=== PATIENT | female | born 1990 | race Caucasian/White ===

== ENCOUNTER 2021-10-19 01:28 | Emergency (ER) | payer BC ==
[~2021-10-19] VITALS: Ht 162.6 cm; Wt 49.0 kg
[2021-10-19 01:44] VITALS: BP 112/78
[2021-10-19] MEDS ORDERED: diphenhydrAMINE 50 MG/ML VIAL IVP ONE (01:50)
[2021-10-19] MEDS ORDERED: NACL 0.9% 1,000 ML IV ONE (01:50)
[2021-10-19] MEDS ORDERED: LORazepam 2 MG/ML VIAL IVP ONE ×2 (01:50→03:15)
[2021-10-19] MEDS ORDERED: ONDANSETRON 4 MG/2 ML VIAL IVP ONE (01:50)
--- NOTE | 2021-10-19 01:50 | NUR ---
PT TAKEN TO BED 9
[2021-10-19 02:11] LABS: BASOPHILS # (AUTO) 0.1 K/uL (0.00-0.22); BASOPHILS % (AUTO) 0.9 % (0.0-2.0); EOSINOPHILS # (AUTO) 0.1 K/uL (0-0.4); EOSINOPHILS % (AUTO) 2.2 % (0.0-4.0); HEMATOCRIT 40.9 % (36-48); HEMOGLOBIN 14.2 g/dL (12.0-16.0); LYMPHOCYTES # (AUTO) 2.3 K/uL (2.5-16.5); LYMPHOCYTES % (AUTO) 40.8 % (20.5-51.1); MEAN CORPUSCULAR HEMOGLOBIN 33 pg (27-31); MEAN CORPUSCULAR HGB CONC 35 g/dL (33-37); MEAN CORPUSCULAR VOLUME 94.4 fL (80-94); MONOCYTES # (AUTO) 0.4 K/uL (0.8-1.0); MONOCYTES % (AUTO) 7.9 % (1.7-9.3); NEUTROPHILS # (AUTO) 2.7 K/uL (1.8-7.7); NEUTROPHILS % (AUTO) 48.2 % (42.2-75.2); PLATELET COUNT (AUTO) 203 K/uL (140-450); RED BLOOD CELL COUNT(AUTO) 4.34 MIL/uL (4.20-5.40); RED CELL DISTRIBUTION WIDTH 12.8 % (11.6-13.7); WHITE BLOOD COUNT (AUTO) 5.6 K/uL (4.8-10.8)
[2021-10-19 02:30] LABS: ALBUMIN 4.3 g/dL (3.4-5.0); CARBON DIOXIDE 29.5 mmol/L (21-32); CREATININE 0.7 mg/dL (0.6-1.3); POTASSIUM 3.5 mmol/L (3.5-5.1); TOTAL BILIRUBIN 0.5 mg/dL (0.0-1.0)
--- NOTE | 2021-10-19 03:08 | NUR ---
PT C/O OF SHAKING, SPASM LIKE TO LOWER EXTREMITIES. ERMD MADE AWARE.
--- NOTE | 2021-10-19 03:51 | NUR ---
IV removed, catheter intact and site benign. Applied folded 4x4 gauze and tape to stop bleeding.
[2021-10-19 03:57] VITALS: BP 101/74
== END 2021-10-19 03:57 | disposition home or self-care (01) ==
LOC: MED 01:28
DX: F41.9 Anxiety disorder, unspecified (principal); R42 Dizziness and giddiness; R11.0 Nausea
CPT/HCPCS: 36415; 80053; 84443; 84702; 85025; 96361; 96374; 96375; 96376; 99284; J1200; J2060; J2405; J7030